=== PATIENT | male | born 1995 | race Caucasian/White ===

== ENCOUNTER 2017-02-11 06:46 | Day surgery (SDC) | payer OTHER ==
[~2017-02-11 06:46] MED LIST: No Historical Meds
[2017-02-11] MEDS ORDERED: OFLOXACIN 0.3 % (OCUFLOX) OPTH SOL 5ML OD ONE (07:00)
[2017-02-11] MEDS ORDERED: CYCLOPENTOLATE 2% OPHTH SOLN 2ML BTL OD ONE (07:00)
[2017-02-11] MEDS ORDERED: PHENYLEPHRINE 2.5% OPHTH SOL 2ML OD ONE (07:00)
[2017-02-11] MEDS ORDERED: BSS with VANC/TOB/EPI for EYE CASES IR ONE (07:00)
[2017-02-11] MEDS ORDERED: D5W/0.2% SODIUM CHLORIDE 250 ML IV ONE (07:00)
[2017-02-11] MEDS ORDERED: LR 500 ML IV ONE (07:00)
[2017-02-11] MEDS ORDERED: LIDOCAINE 3.5 % 1ML OPHTH TOPICAL GEL OU ONE (07:00)
[2017-02-11] MEDS ORDERED: TROPICAMIDE 1% OPHTH SOLN 2ML OD ONE (07:00)
[2017-02-11] MEDS ORDERED: LIDOCAINE 4% INJ 5 ML AMP As Ordered ONE (07:58)
[2017-02-11] MEDS ORDERED: POVIDONE-IODINE 5% OPHTH PREP SOL 30ML As Ordered ONE (07:59)
[2017-02-11] MEDS ORDERED: LIDOCAINE 1% SDV 5 ML VIAL As Ordered ONE (07:59)
[2017-02-11] MEDS ORDERED: CEFUROXIME 1MG/0.1ML INTRACAMERAL INJ As Ordered ONE (08:00)
[2017-02-11] MEDS ORDERED: ACETYLCHOLINE OPHTH SOLN 1% 2ML (MIOCHOL-E) As Ordered ONE (08:20)
[2017-02-11] MEDS ORDERED: MIDAZOLAM INJ 5 MG/ML VIAL (J2250) As Ordered ONE (08:35)
[2017-02-11] MEDS ORDERED: PROPOFOL 200 MG/20 ML VIAL As Ordered ONE (08:35)
[2017-02-11] MEDS ORDERED: fentaNYL 100 MCG/2 ML INJECTION (J3010) As Ordered ONE (08:35)
[2017-02-11 09:49] VITALS: BP 137/73
--- NOTE | 2017-02-14 05:44 | RO ---
DATE OF PROCEDURE: 02/11/2017 PREPROCEDURE DIAGNOSIS: Right corneal perforation and intraocular foreign body. POSTPROCEDURE DIAGNOSIS: Right corneal perforation and intraocular foreign body. PROCEDURE: Examination under anesthesia and removal of the intraocular corneal foreign body, right eye. SURGEON: Dr. Olga Orozco. EXTRUSION DIE TEMPLATE MAKER: None. ANESTHESIA: ESTIMATED BLOOD LOSS: COMPLICATIONS: None. DESCRIPTION OF PROCEDURE: The patient was brought to the operating room and laid in supine position. Preoperatively, the right eye was dilated as the patient was extremely photophobic and exam was impossible in the clinic. The eye was prepped and draped in a sterile fashion for ophthalmic surgery and a lid speculum was placed. A temporal clear corneal incision was made which was about 2.3 mm and a side portion incision was made as well. EndoCoat was injected into the anterior chamber. The eye was first examined. A corneal laceration was noted through and through but was self healing. Foreign body metallic was noted imbedded in the iris at 3 o'clock position. There were no tears noted into the lens capsule. The retina, the disc and the macula were okay on examination. This examination was done prior to the corneal incisions. With the help of the retinal forceps and the retinal scissors, the corneal foreign body was isolated and slowly excised from the iris as it was completely imbedded and retrieved from the temporal clear corneal incision. A thorough anterior chamber washout was then done followed by Miochol and intracameral cefuroxime. Wound was hydrated. Lid speculum removed. Case discussed in detail with the patient and family. edited: 02/17/2017 1153 tkf MTDD
== END 2017-02-11 10:01 | disposition home or self-care (01) ==
LOC: M SDC 06:46
PROVIDERS: ATTEND Ophthalmology
DX: T15.80XA Foreign body in other and multiple parts of external eye, unspecified eye, initial encounter (principal); I10 Essential (primary) hypertension; E66.9 Obesity, unspecified; Z86.69 Personal history of other diseases of the nervous system and sense organs; Z87.81 Personal history of (healed) traumatic fracture

== ENCOUNTER → 2017-05-31 | Outpatient (REF) | payer OTHER ==
[2017-06-01 12:34] LABS: ALBUMIN 3.7 GM/DL (3.2-5.2); ALBUMIN/GLOBULIN RATIO 0.93 (1.00-1.93); ALKALINE PHOSPHATASE 113 U/L (45-117); ALT/SGPT 29 U/L (12-78); ANION GAP 7 MEQ/L (8-16); AST/SGOT 22 U/L (7-37); BILIRUBIN,TOTAL 0.2 MG/DL (0.2-1.0); BLOOD UREA NITROGEN 10 MG/DL (7-18); CALCIUM LEVEL 9.3 MG/DL (8.5-10.1); CARBON DIOXIDE LEVEL 31 MEQ/L (21-32); CHLORIDE LEVEL 101 MEQ/L (98-107); FREE T4 1.09 NG/DL (0.76-1.46); GLOMERULAR FILTRATION RATE > 60.0 (>60); GLUCOSE, FASTING 94 MG/DL (70-105); SODIUM LEVEL 139 MEQ/L (136-145); TOTAL PROTEIN 7.7 GM/DL (6.4-8.2); TRIGLYCERIDES LEVEL 510 MG/DL (<150)
[2017-06-01 12:40] LABS: CHOLESTEROL LEVEL 160 MG/DL (<200); POTASSIUM SERUM 5.5 MEQ/L (3.5-5.1)
== END ==
LOC: M SFHCCLAY 16:04
PROVIDERS: ATTEND Family Medicine
DX: E66.01 Morbid (severe) obesity due to excess calories (principal)

== ENCOUNTER → 2018-06-12 | Outpatient (REF) | payer OTHER ==
[2018-06-12 12:12] LABS: ALBUMIN 3.3 GM/DL (3.2-5.2); ALT/SGPT 23 U/L (12-78); BILIRUBIN,TOTAL 0.4 MG/DL (0.2-1.0); BLOOD UREA NITROGEN 7 MG/DL (7-18); CALCIUM LEVEL 9.1 MG/DL (8.5-10.1); CARBON DIOXIDE LEVEL 32 MEQ/L (21-32); CHLORIDE LEVEL 105 MEQ/L (98-107); CHOLESTEROL LEVEL 95 MG/DL (<200); CHOLESTEROL RISK RATIO 2.111 (<5); CREATININE FOR GFR 0.89 MG/DL (0.70-1.30); FREE T4 1.16 NG/DL (0.76-1.46); GLOMERULAR FILTRATION RATE > 60.0 (>60); GLUCOSE, FASTING 84 MG/DL (70-100); HDL CHOLESTEROL 45 MG/DL (>40); LDL CHOLESTEROL 38 MG/DL (<100); NON-HDL-C 50 MG/DL; POTASSIUM SERUM 4.4 MEQ/L (3.5-5.1); SODIUM LEVEL 143 MEQ/L (136-145); THYROID STIMULATING HORMONE 0.992 uIU/ML (0.358-3.740); TOTAL PROTEIN 6.6 GM/DL (6.4-8.2); TRIGLYCERIDES LEVEL 58 MG/DL (<150)
[2018-06-12 13:35] LABS: HEMOGLOBIN A1c 5.6 %
== END ==
LOC: M SFHCCLAY 07:48
PROVIDERS: ATTEND Nurse Practitioner Family
DX: E66.01 Morbid (severe) obesity due to excess calories (principal); E78.2 Mixed hyperlipidemia; E07.9 Disorder of thyroid, unspecified

== ENCOUNTER → 2018-07-03 | Outpatient (REF) | payer OTHER ==
[2018-07-03 11:58] LABS: BASO % 0.7 % (0.0-1.0); EOS % 1.6 % (0.0-3.0); HEMATOCRIT 45.7 % (42.0-52.0); HEMOGLOBIN 14.8 g/dl (13.5-17.5); LYMPH % 27.9 % (24.0-44.0); MEAN CORPUSCULAR HEMOGLOBIN 28.1 pg (27.0-33.0); MEAN CORPUSCULAR HGB CONC 32.4 g/dl (32.0-36.5); MEAN CORPUSCULAR VOLUME 86.9 fl (80.0-96.0); MONO % 11.3 % (0.0-5.0); NEUTROPHILS % 58.3 % (36.0-66.0); PLATELET COUNT, AUTOMATED 190 10^3/uL (150-450); RED BLOOD COUNT 5.26 10^6/uL (4.30-6.10); WHITE BLOOD COUNT 4.4 10^3/uL (4.0-10.0)
[2018-07-03 11:59] LABS: EOS # 0.1 10^3/uL (0.0-0.50); HEMATOCRIT 45.7 % (42.0-52.0); LYMPH # 1.2 10^3/uL (1.5-6.5); MONO # 0.5 10^3/uL (0.0-0.8); NEUTROPHILS # 2.6 10^3/uL (1.8-7.7)
[2018-07-03 12:49] LABS: ALBUMIN 3.8 GM/DL (3.2-5.2); ALT/SGPT 26 U/L (12-78); BILIRUBIN,TOTAL 0.8 MG/DL (0.2-1.0); BLOOD UREA NITROGEN 9 MG/DL (7-18); CALCIUM LEVEL 9.4 MG/DL (8.5-10.1); CARBON DIOXIDE LEVEL 30 MEQ/L (21-32); CHLORIDE LEVEL 104 MEQ/L (98-107); CREATININE FOR GFR 0.91 MG/DL (0.70-1.30); FERRITIN 210 NG/ML (26-388); GLOMERULAR FILTRATION RATE > 60.0 (>60); GLUCOSE, FASTING 78 MG/DL (70-100); IRON (FE) 101 UG/DL (65-175); PHOSPHORUS LEVEL 3.5 MG/DL (2.5-4.9); POTASSIUM SERUM 4.1 MEQ/L (3.5-5.1); SODIUM LEVEL 140 MEQ/L (136-145); TOTAL IRON BINDING CAPACITY 235 UG/DL (250-450)
[2018-07-03 12:52] LABS: TOTAL 25(OH) VITAMIN D 29.5 NG/ML (30.0-100.0)
[2018-07-03 12:53] LABS: VITAMIN B12 LEVEL 589 PG/ML (247-911)
[2018-07-03 14:41] LABS: HEMOGLOBIN A1c 5.4 %
== END ==
LOC: M LABDRAWC 11:30
PROVIDERS: ATTEND Surgery
DX: K91.2 Postsurgical malabsorption, not elsewhere classified (principal); Z98.84 Bariatric surgery status; E55.9 Vitamin D deficiency, unspecified

== ENCOUNTER 2019-12-30 19:16 | Day surgery (SDC) | payer OTHER ==
[~2019-12-30] VITALS: Ht 180.3 cm; Wt 79.5 kg
[2019-12-30 20:00] LABS: BASO % 0.3 % (0.0-1.0); EOS % 0.2 % (0.0-3.0); HEMATOCRIT 44.4 % (42.0-52.0); HEMOGLOBIN 14.5 g/dl (13.5-17.5); LYMPH % 9.2 % (24.0-44.0); MEAN CORPUSCULAR HEMOGLOBIN 27.9 pg (27.0-33.0); MEAN CORPUSCULAR HGB CONC 32.7 g/dl (32.0-36.5); MEAN CORPUSCULAR VOLUME 85.5 fl (80.0-96.0); MONO # 0.8 10^3/uL (0.0-0.8); NEUTROPHILS # 8.5 10^3/uL (1.5-8.5); PLATELET COUNT, AUTOMATED 149 10^3/uL (150-450); RED BLOOD COUNT 5.19 10^6/uL (4.30-6.10); WHITE BLOOD COUNT 10.4 10^3/uL (4.0-10.0)
[2019-12-30] MEDS ORDERED: NS 1,000 ML IV ONE (20:00)
[2019-12-30] MEDS ORDERED: ONDANSETRON 4MG/2ML VIAL IV ONE (20:00)
[2019-12-30] MEDS ORDERED: ISOVUE-370 76% 100ML VIAL As Ordered ONE (20:17)
[2019-12-30 20:24] LABS: ALBUMIN 3.7 GM/DL (3.2-5.2); BILIRUBIN,DIRECT 0.4 MG/DL (0.0-0.2); BILIRUBIN,TOTAL 0.9 MG/DL (0.2-1.0); TOTAL PROTEIN 6.9 GM/DL (6.4-8.2)
--- NOTE | 2019-12-30 21:04 | REPVR ---
PROCEDURE INFORMATION: Exam: CT Abdomen And Pelvis With Contrast Exam date and time: 12/30/2019 8:37 PM Age: 24 years old Clinical indication: Right lower quadrant abdominal pain with fever. R/O infectious process. TECHNIQUE: Imaging protocol: Computed tomography of the abdomen and pelvis with intravenous contrast. Radiation optimization: All CT scans at this facility use at least one of these dose optimization techniques: automated exposure control; mA and/or kV adjustment per patient size (includes targeted exams where dose is matched to clinical indication); or iterative reconstruction. Contrast material: ISOVUE 370; Contrast volume: 100 ml; Contrast route: INTRAVENOUS (IV); COMPARISON: No relevant prior studies available. FINDINGS: Lungs: The imaged portions of the lung bases are clear. The lungs were not fully imaged. Heart: No cardiomegaly or pericardial effusion. Diaphragm: Intact. Liver: Unremarkable. No liver lesion is identified. The contour of the liver is smooth. No hepatomegaly is noted. Gallbladder and bile ducts: No calcified gallstones are noted. No pericholecystic inflammatory changes are identified. No dilation of the bile ducts is noted. No calcified stones are seen in the common bile duct. Pancreas: Normal. No dilation of the main pancreatic duct is noted. There is no inflammatory fat stranding around the pancreas to suggest acute pancreatitis. Spleen: Normal. No splenomegaly is noted. Adrenals: Normal. No adrenal mass is noted. Kidneys and ureters: The kidneys are normal in appearance. No renal lesion is noted. No stones are noted in the kidneys or ureters. There is no hydronephrosis or hydroureter. There are no wedge-shaped areas of low attenuation in the kidneys to suggest pyelonephritis. There is no renal abscess or perinephric fluid collection. 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 The small bowel is unremarkable. There is no evidence for a bowel obstruction, diverticulosis, diverticulitis, colitis, perforated viscus, pneumatosis intestinalis, or volvulus. Appendix: The retrocecal appendix is dilated and measures 12 mm in diameter, with mucosal enhancement and inflammatory changes and fluid around the appendix, which are findings compatible with acute retrocecal appendicitis (images 77-96 of the axial series 201, images 53-57 of the coronal series 202, and images 35-39 of the sagittal series 203). No appendicolith is noted. Intraperitoneal space: There is a small amount of free fluid in the right lower quadrant of the abdomen and a moderate amount of free fluid in the pelvis. No abscess or intraperitoneal free air is noted. Retroperitoneal space: No fluid collection. No mass. Vasculature: The abdominal aorta is patent, normal in caliber, and there is no dissection. The iliac arteries, common femoral arteries, renal arteries, celiac artery, superior mesenteric artery, and inferior mesenteric artery are patent. Lymph nodes: No enlarged lymph nodes. Bladder: There is thickening of the wall of the partially distended urinary bladder. No calculi are noted in the bladder. Reproductive: The prostate gland and seminal vesicles are unremarkable. Bones/joints: There is no fracture or dislocation. No suspicious osteolytic or osteoblastic lesion. There is a mild levoscoliosis of the lumbar spine. Soft tissues: Unremarkable. No hernia. No soft tissue fluid collection. IMPRESSION: 1. Acute retrocecal appendicitis, a small amount of free fluid in the right lower quadrant of the abdomen, and a moderate amount of free fluid in the pelvis. No abscess. 2. Thickening of the wall of the urinary bladder, which may be secondary to its partially distended state, bladder wall hypertrophy, or cystitis. Correlation with urinalysis is suggested. Electronically signed by: Luiz Moura On 12/30/2019 21:04:32 PM
[2019-12-30] MEDS ORDERED: BUPIVACAINE/EPIN 0.25% 30 ML VIAL As Ordered ONE (22:01)
[2019-12-30] MEDS ORDERED: LIDOCAINE 2% 100MG/5ML SDV (FOR ANES.) As Ordered ONE (22:49)
[2019-12-30] MEDS ORDERED: propofoL 200 MG/20 ML VIAL As Ordered ONE (22:49)
[2019-12-30] MEDS ORDERED: MIDAZOLAM INJ 2MG/2ML VIAL (J2250 PER 1MG) As Ordered ONE (22:49)
[2019-12-30] MEDS ORDERED: ROCURONIUM BROMIDE 50 MG/5 ML VIAL As Ordered ONE (22:49)
[2019-12-30] MEDS ORDERED: fentaNYL 250 MCG/5 ML INJECTION (J3010) As Ordered ONE (22:49)
[2019-12-30] MEDS ORDERED: ZOSYN 3.375GM VIAL (J2543) As Ordered ONE (22:58)
[2019-12-30] MEDS ORDERED: dexameTHASONE 4 MG/ML 1ML VIAL (J1100 PER 1MG) As Ordered ONE (23:02)
[2019-12-30] MEDS ORDERED: ONDANSETRON 4MG/2ML VIAL As Ordered ONE (23:04)
[2019-12-30] MEDS ORDERED: KETOROLAC 60MG 2ML VIAL As Ordered ONE (23:04)
[2019-12-30] MEDS ORDERED: METOCLOPRAMIDE INJ 10MG/2ML VIAL (J2765 PER 1) As Ordered ONE (23:04)
[2019-12-30] MEDS ORDERED: ACETAMINOPHEN 1000MG 100ML IV BTL (OFIRMEV) (J0131 PER 10MG) As Ordered ONE (23:04)
[2019-12-30] MEDS ORDERED: SUGAMMADEX SODIUM 500 MG/5 ML VIAL (BRIDION) As Ordered ONE (23:14)
[2019-12-30] MEDS ORDERED: HYDR-3715 PO (23:43)
[2019-12-30] MEDS ORDERED: oxyCODONE 5MG TAB PO PRN (23:45)
[2019-12-30] MEDS ORDERED: ONDANSETRON 4MG/2ML VIAL IV PRN ×2 (23:45)
[2019-12-30] MEDS ORDERED: LR 1,000 ML IV SCH (23:45)
[2019-12-30] MEDS ORDERED: MORPHINE 2 MG/ML 1ML VIAL (J2270) IV PRN (23:45)
[2019-12-30] MEDS ORDERED: fentaNYL 100 MCG/2 ML INJECTION (J3010) IV PRN (23:45)
[2019-12-30] MEDS ORDERED: NORCO, ANEXSIA 5/325MG TABLET (HYDROcodone/ACETAMINOPHEN) PO PRN (23:45)
[2019-12-30] MEDS ORDERED: KETOROLAC 30 MG/ML 1ML VIAL IV PRN (23:45)
[2019-12-30] MEDS ORDERED: ACETAMINOPHEN TAB 650MG DOSE (2X325MG) PO PRN (23:45)
[2019-12-30] MEDS ORDERED: MEPERIDINE INJ 25 MG/ML VIAL (J2175) As Ordered ONE (23:52)
[2019-12-30] MEDS: MEPERIDINE INJ 25 MG/ML VIAL (J2175) IV PRN (23:53)
[2019-12-31] VITALS (7 sets, daily range): BP systolic 99–124; BP diastolic 56–70
[2019-12-31] MEDS: MEPERIDINE INJ 25 MG/ML VIAL (J2175) IV PRN (00:04)
[2019-12-31] MEDS: NS 1,000 ML IV SCH ×2 (01:33→05:15)
[2019-12-31] MEDS: SENOKOT S TAB PO SCH ×2 (01:33→07:58)
[2019-12-31] MEDS ORDERED: PIPERACILLIN/TAZOBACTAM SOD 3.375 GM in D5W MINI-BAG PLUS 50 ML IV SCH (06:00)
--- NOTE | 2019-12-31 11:44 | HPE ---
DATE OF ADMISSION: 12/30/2019 CHIEF COMPLAINT: Right lower quadrant pain. HISTORY OF PRESENT ILLNESS: The patient is a 24-year-old male who started with right lower quadrant pain around 7 o'clock this morning. It got progressively worse throughout the day. He had some subjective fevers as well. He eventually decided to come into the emergency room this evening, found to have signs of a retrocecal appendicitis. Plan was to bring him to the operating room for a laparoscopic appendectomy. Currently, he feels slightly feverish. He has a temperature of 100.2. Abdominal pain is still present in the right lower side. No problems with bowel movements or urination. No recent changes in diet. No recent travel or trauma to the abdomen. PAST MEDICAL HISTORY: Thyroid disease, celiac disease. SURGICAL HISTORY: Gastric bypass. ALLERGIES: NONE. MEDICATIONS: Please see med rec. REVIEW OF SYSTEMS: Pertinent positives and negatives as stated in the HPI. SOCIAL HISTORY: He denies drug, alcohol or tobacco abuse. FAMILY HISTORY; Noncontributory. PHYSICAL EXAMINATION: GENERA: Alert and oriented times three. No acute stress. VITAL SIGNS: Temperature 100.2, pulse 79, respirations 16, blood pressure 122/67, pulse oximetry 100% in room air. HEENT: Pupils equally round and react to light and accommodation. HEART: S1, S2, regular rate and rhythm. LUNGS: Clear to auscultation bilaterally. ABDOMEN: Soft, tender to palpation in right lower quadrant with localized guarding. No rigidity. EXTREMITIES: No clubbing, cyanosis or edema. LABORATORY DATA: White count 10.4, hemoglobin 14.5, platelets 149. Sodium 140, potassium 3.4. IMAGING: CT abdomen and pelvis shows an appendix retrocecal dilated up to 12 mm in diameter with mucosal enhancement inflammatory changes with fluid around the appendix. Findings compatible with acute retrocecal appendicitis. ASSESSMENT/PLAN: The patient is a 24-year-old male with right lower quadrant pain and findings of acute appendicitis. Recommendation is to proceed with laparoscopic and possible open appendectomy. Risks and benefits of the procedure not limited but including bleeding, infection, hernia formation, damage to surrounding structures, need for further surgery were discussed in detail with the patient. Informed consent was obtained and procedure was planned. Postoperatively, he will likely stay until morning and be discharged home.
--- NOTE | 2020-01-07 14:27 | RO ---
DATE OF PROCEDURE: 12/30/2019 PREOPERATIVE DIAGNOSIS: Acute appendicitis. POSTOPERATIVE DIAGNOSIS: Acute appendicitis. PROCEDURE: Laparoscopic appendectomy. SURGEON: Dr. Russ EVP [employer] EXPERIENCE STRATEGY: None. ANESTHESIA: General. ESTIMATED BLOOD LOSS: 5. COMPLICATIONS: None. INDICATIONS FOR PROCEDURE: The patient is a 24-year-old male who presents with right upper quadrant pain found to have acute appendicitis. Recommendation is to proceed with laparoscopic possible open appendectomy. Risks and benefits of the procedure not limited but including bleeding, infection, hernia formation, damage to surrounding structures, need for further surgery were discussed in detail with the patient. Informed was obtained and procedure was planned. DESCRIPTION OF PROCEDURE: The patient was brought back to operating room #3. After sufficient sedation, the abdomen was sterilely prepped and draped. Next, time-out was done to confirm proper patient and proper procedure. Following that a 5 mm incision was made in the left lower quadrant, Veress needle was inserted and the abdomen was insufflated to 50 mmHg. Veress needle was then removed and a 5 mm Optiview port was used to gain access to the abdomen. Once the abdomen was entered, an 8 mm port was placed supraumbilically in the midline. Another 5 mm port was placed suprapubically in the midline. The cecum was then mobilized medially and then retrocecal, it was a retroperitoneal appendix that was dilated and inflamed. This was carefully dissected free with a combination of blunt and sharp dissection. Once it was freed up, the mesoappendix was taken down with the Enseal. Once the base of the appendix was reached, it was ligated with two PDS Endoloop and then amputated using the Enseal brought out through the umbilical port site in a 5 mm Endo Catch bag. The fascia at the umbilical port site had to be stretched to get the appendix out. It was then closed with [id number] #0 Vicryl suture using a Derrick-Adalberto needle. Once that was completed, the abdomen was desufflated. Skin incision were closed with #4-0 Vicryl subcuticular sutures. The abdomen was cleaned and dried. Steri-Strips, 4 x 4 and tape were applied, thus ending procedure.
--- NOTE | 2020-01-08 20:09 | DSES ---
DATE OF ADMISSION: 12/30/2019 DATE OF DISCHARGE: 12/31/2019 ADMISSION DIAGNOSIS: Appendicitis. DISCHARGE DIAGNOSIS: Appendicitis. HOSPITAL COURSE: Patient is a 24-year-old male who presented to the emergency room (ER) yesterday with abdominal pain, found to have acute appendicitis. He was brought to the operating room last evening for laparoscopic appendectomy. Surgery was uneventful. He tolerated it well. This morning he is continuing to improve. He has been up ambulating and urinating on his own without any difficulty. No nausea or vomiting. Denies abdominal pains, and he is ready to go home. The only reason he stayed overnight was simply due to the fact that his surgery ended close to midnight. He is okay to start showering late this evening or tomorrow. No baths for 5 days. No lifting more than 20 pounds for 2 weeks. He has a script for [place] sent to his pharmacy. He can also use Motrin with that if needed. All of his questions were answered, and he will be going home this morning.
== END 2019-12-31 10:50 | disposition home or self-care (01) ==
LOC: M ED 19:16 → M SDC 21:19 → M MSPAV 12-31 00:25 → M SDC 12-31 10:50
PROVIDERS: ATTEND Surgery
DX: K35.80 Unspecified acute appendicitis (principal); E07.9 Disorder of thyroid, unspecified; K90.0 Celiac disease; Z98.84 Bariatric surgery status
CPT/HCPCS: 44970; 80047; 80076; 81001; 83690; 85025; 88304; 96361; 96374; 99284; J0131; J1100; J1885; J2175; J2250; J2405; J2543; J2765; J3010; Q9967; U0002

== ENCOUNTER → 2020-03-11 | Outpatient (REF) | payer OTHER ==
[~2020-03-11] MED LIST changes: +HYDR-3715 PO
[2020-03-11 12:45] LABS: BASO % 0.5 % (0.0-1.0); EOS # 0.2 10^3/uL (0.0-0.5); EOS % 4.6 % (0.0-3.0); HEMATOCRIT 44.7 % (42.0-52.0); HEMOGLOBIN 14.5 g/dl (13.5-17.5); LYMPH # 0.9 10^3/uL (1.5-5.0); LYMPH % 23.9 % (24.0-44.0); MEAN CORPUSCULAR HEMOGLOBIN 27.8 pg (27.0-33.0); MEAN CORPUSCULAR HGB CONC 32.4 g/dl (32.0-36.5); MEAN CORPUSCULAR VOLUME 85.6 fl (80.0-96.0); MONO # 0.4 10^3/uL (0.0-0.8); MONO % 10.4 % (0.0-5.0); NEUTROPHILS # 2.4 10^3/uL (1.5-8.5); NEUTROPHILS % 60.3 % (36.0-66.0); PLATELET COUNT, AUTOMATED 173 10^3/uL (150-450); RED BLOOD COUNT 5.22 10^6/uL (4.30-6.10); WHITE BLOOD COUNT 3.9 10^3/uL (4.0-10.0)
[2020-03-11 12:56] LABS: ALBUMIN 3.5 GM/DL (3.2-5.2); ALT/SGPT 16 U/L (12-78); BILIRUBIN,TOTAL 0.7 MG/DL (0.2-1.0); BLOOD UREA NITROGEN 9 MG/DL (7-18); CALCIUM LEVEL 9.2 MG/DL (8.5-10.1); CARBON DIOXIDE LEVEL 30 MEQ/L (21-32); CHLORIDE LEVEL 105 MEQ/L (98-107); CHOLESTEROL LEVEL 120 MG/DL (<200); CREATININE FOR GFR 0.96 MG/DL (0.70-1.30); FREE T4 1.32 NG/DL (0.76-1.46); GLOMERULAR FILTRATION RATE > 60.0 (>60); GLUCOSE, FASTING 87 MG/DL (70-100); HDL CHOLESTEROL 43 MG/DL (>40); LDL CHOLESTEROL 63 MG/DL (<100); NON-HDL-C 77 MG/DL; POTASSIUM SERUM 4.2 MEQ/L (3.5-5.1); SODIUM LEVEL 140 MEQ/L (136-145); TRIGLYCERIDES LEVEL 70 MG/DL (<150)
[2020-03-11 13:00] LABS: HEMOGLOBIN A1c 5.5 %
[2020-03-11 13:27] LABS: TOTAL 25(OH) VITAMIN D 41.8 NG/ML (30.0-100.0); VITAMIN B12 LEVEL 380 PG/ML (247-911)
== END ==
LOC: M SFHCCLAY 11:45
PROVIDERS: ATTEND Nurse Practitioner Family
DX: R42 Dizziness and giddiness (principal); Z98.84 Bariatric surgery status

== ENCOUNTER → 2021-05-29 | Outpatient (REF) | payer BC, MEDICAID ==
[2021-05-29 15:56] LABS: BASO % 0.7 % (0.0-1.0); EOS # 0.1 10^3/uL (0.0-0.5); EOS % 1.3 % (0.0-3.0); HEMATOCRIT 44.4 % (42.0-52.0); HEMOGLOBIN 14.5 g/dl (13.5-17.5); LYMPH # 1.5 10^3/uL (1.5-5.0); LYMPH % 24.2 % (24.0-44.0); MEAN CORPUSCULAR HEMOGLOBIN 27.9 pg (27.0-33.0); MEAN CORPUSCULAR HGB CONC 32.7 g/dl (32.0-36.5); MEAN CORPUSCULAR VOLUME 85.5 fl (80.0-96.0); MONO # 0.6 10^3/uL (0.0-0.8); MONO % 10.5 % (2.0-8.0); NEUTROPHILS # 3.8 10^3/uL (1.5-8.5); NEUTROPHILS % 63.3 % (36.0-66.0); PLATELET COUNT, AUTOMATED 212 10^3/uL (150-450); RED BLOOD COUNT 5.19 10^6/uL (4.30-6.10)
[2021-05-29 16:38] LABS: ALBUMIN 3.7 GM/DL (3.2-5.2); ALT/SGPT 18 U/L (12-78); BILIRUBIN,TOTAL 0.3 MG/DL (0.2-1.0); BLOOD UREA NITROGEN 14 MG/DL (7-18); CALCIUM LEVEL 8.8 MG/DL (8.5-10.1); CARBON DIOXIDE LEVEL 29 MEQ/L (21-32); CHLORIDE LEVEL 105 MEQ/L (98-107); FREE T4 1.21 NG/DL (0.76-1.46); GLOMERULAR FILTRATION RATE > 60.0 (>60); GLUCOSE, FASTING 96 MG/DL (70-100); IRON (FE) 72 UG/DL (65-175); PERCENT SATURATION 25.7 % (19.7-50.0); POTASSIUM SERUM 4.1 MEQ/L (3.5-5.1); SODIUM LEVEL 140 MEQ/L (136-145); TOTAL 25(OH) VITAMIN D 21.8 NG/ML (30.0-100.0); TOTAL IRON BINDING CAPACITY 280 UG/DL (250-450); TOTAL PROTEIN 6.9 GM/DL (6.4-8.2); VITAMIN B12 LEVEL 268 PG/ML (247-911)
== END ==
LOC: M SFHCCLAY 13:05
PROVIDERS: ATTEND Nurse Practitioner Family
DX: K90.0 Celiac disease (principal); Z98.84 Bariatric surgery status

== ENCOUNTER → 2021-05-29 | Outpatient (CLI) | payer BC, MEDICAID ==
--- NOTE | 2021-05-30 16:46 | REP ---
INDICATION: DYSPNEA ON EXERTION COMPARISON: None. TECHNIQUE: PA and lateral. FINDINGS: The mediastinum and cardiac silhouette are normal. The lung crawford are clear and without acute consolidation, effusion, or pneumothorax. The skeletal structures are intact and normal. IMPRESSION: No acute cardiopulmonary process. <Electronically signed by Kyle Choudhary > 05/30/21 [id number]
== END ==
LOC: M CLY 13:06
PROVIDERS: ATTEND Nurse Practitioner Family
DX: R06.00 Dyspnea, unspecified (principal)

== ENCOUNTER → 2022-01-05 | Outpatient (CLI) | payer BC, MEDICAID, OTHER, SELFPAY ==
[~2022-01-05] MED LIST changes: +METHACHOLINE KIT (J7674) INH ONE
== END ==
LOC: M CARPUL 12:30
PROVIDERS: ATTEND Nurse Practitioner Family
DX: R06.00 Dyspnea, unspecified (principal)
CPT/HCPCS: 94070; 95070; J7674

== ENCOUNTER → 2022-02-03 | Outpatient (CLI) | payer BC, MEDICAID ==
[~2022-02-03] MED LIST changes: -METHACHOLINE KIT (J7674) INH ONE
== END ==
LOC: M SLEEP HO 11:40
PROVIDERS: ATTEND Nurse Practitioner Family
DX: R06.83 Snoring (principal)